=== PATIENT | female | born 1985 | race Hispanic/Latino ===

== ENCOUNTER 2020-11-12 01:11 | Emergency (ER) | payer OTHER ==
[~2020-11-12] VITALS: Ht 149.9 cm; Wt 76.2 kg
[2020-11-12] MEDS ORDERED: ACETAMINOPHEN 500 MG TABLET PO ONE (01:30)
[2020-11-12 02:22] VITALS: BP 121/64
== END 2020-11-12 02:25 | disposition home or self-care (01) ==
LOC: EDH 01:11
DX: U07.1 COVID-19 (principal); J06.9 Acute upper respiratory infection, unspecified
CPT/HCPCS: 87635; 87804 ×2; 99283; C9803